=== PATIENT | female | born 1985 | race American Indian/Alaskan Native ===

== ENCOUNTER 2016-11-21 14:24 | Emergency (ER) | payer OTHER ==
[2016-11-21 14:51] VITALS: BP 121/72
[2016-11-21] MEDS ORDERED: MOTRIN PO ONE (16:49)
--- NOTE | 2016-11-21 16:50 | Emergency Department Report ---
Upper Extremity - HPI Chief Complaint: Extremity Injury, Upper Stated Complaint: LEFT THUMB JOINT PAIN Time Seen by Provider: 11/21/16 16:38 Upper Extremity: Left Thumb (left thumb pain) Occurred When: >5 Days Mechanism: Other (unknown) Symptoms: Yes Pain with Movement ( right thumb), No Deformity, No Limited Range of Movement, No Numbness, No Weakness, No Swelling, No Bruising/Ecchymosis, No Laceration or Abrasion Other History: Patient here reports that she is having lt thumb pain at the base. She reports that pain is burning and it comes and goes. Patient uses a [place] at work. Reports a burning pain at 6 out of 10. Denies any trauma. ED Review of Systems ROS: Stated complaint: LEFT THUMB JOINT PAIN Other details as noted in HPI Comment: All other systems reviewed and negative Constitutional: denies: chills, fever Respiratory: no symptoms reported Cardiovascular: denies: chest pain, palpitations, edema, syncope Musculoskeletal: arthralgia. denies: back pain, joint swelling Neurological: denies: headache, numbness, paresthesias, abnormal gait, vertigo ED Past Medical Hx - Past Medical History Previous Medical History?: Yes Hx Diabetes: (BORDERLINE) Additional medical history: SCOLEOSIS - Surgical History Past Surgical History?: Yes Additional Surgical History: BACK SURGERY X 2. HERNIA REPAIR - Family History Family history: hypertension - Social History Smoking Status: Never Smoker Substance Use Type: Alcohol - Medications Home Medications: Home Medications Medication Instructions Recorded Confirmed Last Taken Type Naproxen [Naprosyn TAB] 500 mg PO BID PRN #15 tablet 11/21/16 Unknown Rx Upper Extremity Exam - Exam General: Vital signs noted. No distress. Alert and acting appropriately. This is a 31-year-old female well-nourished well-developed in no acute distress. Head and Torso: No HEENT Abnormality, No Neck Tenderness, No Chest/Lungs Abnormality, No Abdominal Tenderness, No Back Tenderness Shoulder Exam: Yes Normal Range of Motion in Shoulder, No Shoulder Tenderness, No Clavicle Tenderness, No Shoulder Deformity, No AC Joint Tenderness Arm Exam: No Arm/Humerus Tenderness, No Arm Deformity Elbow: Yes Normal Range of Motion in Elbow, No Elbow Tenderness, No Elbow Deformity Forearm: No Forearm Tenderness, No Forearm Deformity, No Pain with Pronation, No Pain with Supination Wrist: Yes Normal ROM in Wrist, No Wrist Tenderness, No Wrist Deformity, No Snuffbox Tenderness, No Pain with Axial Thumb Compression Hand: Yes Normal ROM in Digit(s), No Hand Tenderness, No Hand Deformity, No Digit Tenderness, No Digit(s) Deformity, No Tendon Dysfunction CMS Exam: Yes Normal Distal Pulses, Yes Normal Capillary Refill, Yes Normal Distal Sensation, No Broken Skin ED Course Vital Signs 11/21/16 14:40 Temperature 98.3 F Pulse Rate 78 Respiratory 18 Rate Blood Pressure 121/72 O2 Sat by Pulse 100 Oximetry - Reevaluation(s) Reevaluation #1: 11/21/16 16:51 Patient Motrin 800 mg in emergency room to manage pain. - Orthopedic Splinting/Casting Injury #1 Side: left Upper Extremity Injury Location: hand (left thumb ) Upper Extremity Immobilizer: wrist splint ED Medical Decision Making - Medical Decision Making ED course: She given Motrin 800 mg in emergency room to manage some pain. Discussed with her that there is a strong possibility that she can have carpal tunnel syndrome and she'll need to follow-up with orthopedic doctor for further evaluation and treatment. See procedure note for details. Patient was understanding of diagnostic and treatment plan. Discharged home with prescription for naproxen. Critical care attestation.: If time is entered above; I have spent that time in minutes in the direct care of this critically ill patient, excluding procedure time. ED Disposition Clinical Impression: Pain of left thumb Disposition: DISCHARGED TO HOME OR SELFCARE Is pt being admited?: No Does the pt Need Aspirin: No Condition: Stable Instructions: Arthralgia (ED) Prescriptions: Naproxen [Naprosyn TAB] 500 mg PO BID PRN #15 tablet PRN Reason: Pain Referrals: PRIMARY CAREMD [Primary Care Provider] - 3-5 Days LAURA MEJIA MD [Staff Physician] - 2-3 Days Forms: Work/School Release Form(ED)
== END 2016-11-21 17:15 | disposition home or self-care (01) ==
LOC: ED 14:24
DX: M79.645 Pain in left finger(s) (principal)
CPT/HCPCS: 99282

== ENCOUNTER 2017-02-10 08:57 | Emergency (ER) | payer OTHER ==
[2017-02-10 09:58] LABS: Basophils % (Auto) 0.3 % (0.0-1.8); Eosinophils % (Auto) 0.4 % (0.0-4.3); Hematocrit 36.4 % (30.3-42.9); Mean Corpuscular HGB Conc 33 % (30-34); Mean Corpuscular Volume 78 fl (79-97); Platelet Count 372 K/mm3 (140-440); Red Blood Count 4.65 M/mm3 (3.65-5.03); Red Cell Distribution Width 15.5 % (13.2-15.2); White Blood Count 4.6 K/mm3 (4.5-11.0)
[2017-02-10 10:00] LABS: Alanine Aminotransferase 6 units/L (7-56); Albumin 3.9 g/dL (3.9-5); Albumin/Globulin Ratio 1.1 %; Alkaline Phosphatase 55 units/L (35-129); Anion Gap 18 mmol/L; Blood Urea Nitrogen 7 mg/dL (7-17); Carbon Dioxide 21 mmol/L (22-30); Chloride 101.8 mmol/L (98-107); Glucose 94 mg/dL (65-100); Lipase 12 units/L (13-60); Potassium 3.9 mmol/L (3.6-5.0); Sodium 137 mmol/L (137-145); Total Protein 7.4 g/dL (6.3-8.2)
[2017-02-10 10:18] LABS: Bilirubin,Urine NEG (Negative); Blood,Urine NEG (Negative); Ketones,Urine TR mg/dL (Negative); Leukocyte Esterase,Urine NEG (Negative); Mucus,Urine FEW /HPF; Nitrite,Urine NEG (Negative); Protein,Urine <15 mg/dL mg/dL (Negative); RBC,Urine < 1.0 /HPF (0.0-6.0); Urobilinogen,Urine < 2.0 mg/dL (<2.0)
[2017-02-10 10:29] LABS: Mean Corpuscular Hemoglobin 26 pg (28-32)
--- NOTE | 2017-02-10 14:58 | Emergency Department Report ---
ED General Adult HPI - General Chief complaint: Abdominal Pain Stated complaint: ABD PAIN /BACK PAIN Time Seen by Provider: 02/10/17 14:57 Source: patient, RN notes reviewed Mode of arrival: Ambulatory Limitations: No Limitations - History of Present Illness Initial comments: This is a 31-year-old female. She is previously unknown to me. She is 1, para 0. Last menstrual period is at the end of December. 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 The patient presents to the ER with resolved lower abdominal pain and lower back pain. She has nausea but no vomiting. She has no chest pain or shortness of breath. The patient did not know that she was . She currently has no abdominal pain or lower back pain. She has no irritative or obstructive urinary symptoms , and she denies hematemesis and bright red blood per rectum. Abdominal pain was cramping. Back pain was cramping. Did not radiate anywhere. No exacerbating or relieving factors. -: Gradual Location: back, abdomen Severity scale (0 -10): 5 Consistency: now resolved Improves with: none Worsens with: none Associated Symptoms: nausea/vomiting. denies: confusion, chest pain, cough, diaphoresis, headaches, loss of appetite, malaise, shortness of breath, syncope , weakness - Related Data Home Medications Medication Instructions Recorded Confirmed Last Taken Ibuprofen [Motrin] 200 mg PO Q6H PRN 02/10/17 02/10/17 Unknown Previous Rx's Medication Instructions Recorded Last Taken Type Doxylamine/Pyridoxine HCl 1 each PO QHS PRN #30 tablet. 02/10/17 Unknown Rx [Rachael Alcantar 10-10 mg Tablet] Vit W-Ca,Fe,FA(<1 mg) 1 each PO QDAY #30 tablet 02/10/17 Unknown Rx [ Vitamins] Allergies Allergy/AdvReac Type Severity Reaction Status Date / Time acetaminophen [From Tylox] AdvReac Rash Verified 11/21/16 14:46 oxycodone HCl [From Tylox] AdvReac Rash Verified 11/21/16 14:46 ED Review of Systems ROS: Stated complaint: ABD PAIN /BACK PAIN Other details as noted in HPI Constitutional: denies: fever ENT: denies: dental pain, epistaxis Respiratory: denies: cough Cardiovascular: denies: chest pain Gastrointestinal: nausea Genitourinary: denies: dysuria Musculoskeletal: denies: myalgia Skin: denies: lesions Neurological: denies: weakness Psychiatric: denies: anxiety ED Past Medical Hx - Past Medical History Hx Diabetes: (BORDERLINE) Additional medical history: SCOLEOSIS - Surgical History Additional Surgical History: BACK SURGERY X 2. HERNIA REPAIR - Social History Smoking Status: Never Smoker Substance Use Type: Alcohol - Medications Home Medications: Home Medications Medication Instructions Recorded Confirmed Last Taken Type Doxylamine/Pyridoxine HCl 1 each PO QHS PRN #30 tablet.dr 02/10/17 Unknown Rx [Diclegis Dr 10-10 mg Tablet] Ibuprofen [Motrin] 200 mg PO Q6H PRN 02/10/17 02/10/17 Unknown History Vit W-Ca,Fe,FA(<1 mg) 1 each PO QDAY #30 tablet 02/10/17 Unknown Rx [ Vitamins] ED Physical Exam - General Limitations: No Limitations General appearance: alert, in no apparent distress - Head Head exam: Present: atraumatic, normocephalic - Eye Eye exam: Present: normal appearance, EOMI. Absent: nystagmus - ENT ENT exam: Present: normal exam, normal orophraynx, mucous membranes moist, normal external ear exam - Neck Neck exam: Present: normal inspection, full ROM. Absent: tenderness, meningismus - Respiratory Respiratory exam: Present: normal lung sounds bilaterally. Absent: respiratory distress, wheezes, rales, rhonchi, stridor, chest wall tenderness, accessory muscle use, decreased breath sounds - Cardiovascular Cardiovascular Exam: Present: regular rate, normal rhythm, normal heart sounds. Absent: bradycardia, tachycardia, irregular rhythm, systolic murmur, diastolic murmur, rubs, gallop - GI/Abdominal GI/Abdominal exam: Present: soft, normal bowel sounds. Absent: distended, tenderness, guarding, rebound, rigid, pulsatile mass - Extremities Exam Extremities exam: Present: normal inspection, full ROM, normal capillary refill. Absent: tenderness, pedal edema, joint swelling, calf tenderness - Back Exam Back exam: Present: normal inspection, full ROM. Absent: tenderness, CVA tenderness (R), CVA tenderness (L), muscle spasm, paraspinal tenderness, vertebral tenderness - Neurological Exam Neurological exam: Present: alert, oriented X3, normal gait, other (Extraocular movements intact. Tongue midline. No facial droop. Facial sensation intact to light touch in the V1, V2, V3 distribution bilaterally. 5 and 5 strength in 4 extremities.. Sensation is intact to light touch in 4 extremities.). Absent : motor sensory deficit - Psychiatric Psychiatric exam: Present: normal affect, normal mood - Skin Skin exam: Present: warm, dry, intact, normal color. Absent: rash ED Course Vital Signs 02/10/17 02/10/17 02/10/17 09:17 14:18 14:20 Temperature 98.7 F Pulse Rate 94 H Respiratory 16 Rate Blood Pressure 124/80 126/86 Blood Pressure [Left] O2 Sat by Pulse 100 99 100 Oximetry 02/10/17 02/10/17 02/10/17 14:24 14:30 14:40 Temperature 98.4 F Pulse Rate 108 H Respiratory 16 Rate Blood Pressure 126/86 126/86 Blood Pressure 126/86 [Left] O2 Sat by Pulse 100 97 98 Oximetry 02/10/17 02/10/17 02/10/17 14:50 15:00 15:10 Temperature Pulse Rate Respiratory Rate Blood Pressure 126/86 126/86 126/86 Blood Pressure [Left] O2 Sat by Pulse 98 97 81 L Oximetry 02/10/17 02/10/17 02/10/17 15:15 15:20 17:10 Temperature 98.7 F Pulse Rate 77 Respiratory 16 16 Rate Blood Pressure 126/86 Blood Pressure 114/78 [Left] O2 Sat by Pulse 99 99 100 Oximetry - Reevaluation(s) Reevaluation #1: 02/10/17 16:00 Differential diagnosis: Nausea and vomiting of , urinary tract infection, incidental Assessment and plan: 31-year-old female with resolved abdominal pain, resolved back pain, nontender abdomen, with incidental . My bedside ultrasound does not demonstrate an intrauterine . Urinalysis not consistent with UTI. Quantitative hCG ordered. Formal transvaginal ultrasound ordered. Patient declines pain medication, nausea medication at this time. Reevaluation #2: 02/10/17 16:38 Ultrasound confirms intrauterine . Patient feels improved. She is playing in a cellular phone. She is tolerating liquid feeds. She will be discharged with nausea medication, vitamins, instructions to follow up with outpatient obstetrics. Type and screen appreciated, there is no bleeding, therefore RhoGAM is not indicated at this time. 02/10/17 20:59 ED Medical Decision Making - Lab Data Result diagrams: 02/10/17 09:26 02/10/17 09:26 Vital Signs 02/10/17 02/10/17 02/10/17 09:17 14:18 14:20 Temperature 98.7 F Pulse Rate 94 H Respiratory 16 Rate Blood Pressure 124/80 126/86 Blood Pressure [Left] O2 Sat by Pulse 100 99 100 Oximetry 02/10/17 14:24 Temperature 98.4 F Pulse Rate 108 H Respiratory 16 Rate Blood Pressure Blood Pressure 126/86 [Left] O2 Sat by Pulse 100 Oximetry Lab Results 02/10/17 02/10/17 02/10/17 Range/Units 09:26 09:26 09:38 WBC 4.6 (4.5-11.0) K/mm3 RBC 4.65 (3.65-5.03) M/mm3 Hgb 12.0 (10.1-14.3) gm/dl Hct 36.4 (30.3-42.9) % MCV 78 L (79-97) fl MCH 26 L (28-32) pg MCHC 33 (30-34) % RDW 15.5 H (13.2-15.2) % Plt Count 372 (140-440) K/mm3 Lymph % (Auto) 28.3 (13.4-35.0) % [place] % (Auto) 7.7 H (0.0-7.3) % Eos % (Auto) 0.4 (0.0-4.3) % Baso % (Auto) 0.3 (0.0-1.8) % Lymph # 1.3 (1.2-5.4) K/mm3 [place] # 0.4 (0.0-0.8) K/mm3 Eos # 0.0 (0.0-0.4) K/mm3 Baso # 0.0 (0.0-0.1) K/mm3 Seg Neutrophils % 63.3 (40.0-70.0) % Seg Neutrophils # 2.9 (1.8-7.7) K/mm3 Sodium 137 (137-145) mmol/L Potassium 3.9 (3.6-5.0) mmol/L Chloride 101.8 (98-107) mmol/L Carbon Dioxide 21 L (22-30) mmol/L Anion Gap 18 mmol/L BUN 7 (7-17) mg/dL Creatinine 0.4 L (0.7-1.2) mg/dL Estimated GFR > 60 ml/min BUN/Creatinine Ratio 17.50 % Glucose 94 (65-100) mg/dL Calcium 9.0 (8.4-10.2) mg/dL Total Bilirubin 1.00 (0.1-1.2) mg/dL AST 12 (5-40) units/L ALT 6 L (7-56) units/L Alkaline Phosphatase 55 (35-129) units/L Total Protein 7.4 (6.3-8.2) g/dL Albumin 3.9 (3.9-5) g/dL Albumin/Globulin Ratio 1.1 % Lipase 12 L (13-60) units/L Urine Color Yellow (Yellow) Urine Turbidity Clear (Clear) Urine pH 6.0 (5.0-7.0) Ur Specific [place] 1.012 (1.003-1.030) Urine Protein <15 mg/dl (Negative) mg/dL Urine Glucose (UA) Neg (Negative) mg/dL Urine Ketones Tr (Negative) mg/dL Urine Blood Neg (Negative) Urine Nitrite Neg (Negative) Ur Reducing Substances Not Reportable Urine Bilirubin Neg (Negative) Urine Ictotest Not Reportable Urine Urobilinogen < 2.0 (<2.0) mg/dL Ur Leukocyte Esterase Neg (Negative) Urine WBC (Auto) 1.0 (0.0-6.0) /HPF Urine RBC (Auto) < 1.0 (0.0-6.0) /HPF U Epithel Cells (Auto) 5.0 (0-13.0) /HPF Hyaline Casts 1 /LPF Urine Mucus Few /HPF Urine HCG, Qual Positive A (Negative) - Radiology Data Radiology results: report reviewed, image reviewed Transvaginal and obstetrics ultrasound demonstrated an intrauterine , early gestational sac, 5 weeks and 5 days. No heartbeat is noted. Ovaries not visualized. No bleeding is noted. Critical care attestation.: If time is entered above; I have spent that time in minutes in the direct care of this critically ill patient, excluding procedure time. ED Disposition Clinical Impression: Disposition: DISCHARGED TO HOME OR SELFCARE Is pt being admited?: No Does the pt Need Aspirin: No Condition: Stable Instructions: Morning Sickness (ED), (ED) Additional Instructions: Take the vitamins, nausea medication as directed. Follow-up with the listed OB/ [facility] physicians as soon as possible to initiate care. Avoid consumption of ibuprofen, Motrin, Aleve, aspirin. Avoid eating heavy and spicy foods. Return to the ER right away with new pain, worsened pain, migration of pain, fevers or chills, nausea or vomiting, any inability to tolerate liquid feeds. Prescriptions: Doxylamine/Pyridoxine HCl [Rachael Alcantar 10-10 mg Tablet] 1 each PO QHS PRN #30 tablet. PRN Reason: Nausea Vit W-Ca,Fe,FA(<1 mg) [ Vitamins] 1 each PO QDAY #30 tablet Referrals: PRIMARY CAREMD [Primary Care Provider] - 3-5 Days ARON POWELL MD [Staff Physician] - 3-5 Days [facility] [Provider Group] - 3-5 Days [facility] [Provider Group] - 3-5 Days [facility] [Provider Group] - 3-5 Days
--- NOTE | 2017-02-10 16:24 | Ultrasound Report ---
ULTRASOUND OB LESS THAN 14 WEEKS - TRANSABDOMINAL AND TRANSVAGINAL INDICATION: , abdominal pain. Positive urine test. COMPARISON: None similar. FINDINGS: Transabdominal and transvaginal pelvic sonography somewhat limited due to patient's body habitus in this patient with LMP unsure, possibly 12/28/2016 and estimated menstrual age of 6 weeks and 2 days. A 7.9 x 4.2 x 4.4 cm uterus demonstrates a single cystic focus along the endometrium without a pole evident at this time. Approximately 2 mm yolk sac. Mean gestational sac diameter of 0.92 cm corresponds to 5 weeks and 5 days. No significant pelvic free fluid. Ovaries not well visualized, though grossly estimated at 3.2 x 1.4 x 2 cm on the right, in so far seen. Left ovary not seen. CONCLUSION: 1. Sonographic findings suggest an intrauterine gestational sac/early estimated at 5 weeks and 5 days with EDC of 10/08/2017, though viability yet not confirmed at this time. 2. Left ovary not visualized. Please also correlate clinically, with serial serum beta-hCG values and/or followup sonogram, as warranted. Thank you for the opportunity to participate in this patient's care.
[2017-02-10 17:41] VITALS: BP 114/78
== END 2017-02-10 17:15 | disposition home or self-care (01) ==
LOC: ED 08:57
DX: O21.9 Vomiting of pregnancy, unspecified (principal); R11.0 Nausea; E11.9 Type 2 diabetes mellitus without complications; M41.9 Scoliosis, unspecified; Z88.8 Allergy status to other drugs, medicaments and biological substances; Z3A.01 Less than 8 weeks gestation of pregnancy
CPT/HCPCS: 36415; 76801; 76817; 80053; 81001; 81025; 83690; 84702; 85025; 86850; 86900; 86901

== ENCOUNTER 2017-03-22 14:55 | Emergency (ER) | payer OTHER, MEDICAID ==
--- NOTE | 2017-03-22 15:34 | Emergency Department Report ---
Chief Complaint: Chest Pain Stated Complaint: CHEST/BACK PAIN Time Seen by Provider: 03/22/17 15:29 - HPI History of Present Illness: PT c/o cough x 2 weeks, productive sputum pt is . PT states she threw up one time. - ROS Review of Systems: + [place] + back pain + cough, hurts back to cough and sneeze - Exam Vital Signs: Vital Signs 03/22/17 15:19 Temperature 98.6 F Pulse Rate 80 Respiratory 20 Rate Blood Pressure 123/78 O2 Sat by Pulse 100 Oximetry Physical Exam: No CVA tenderness. PT c/o L lower back pain, no tenderness on exam. MSE screening note: Focused history and physical exam performed. Due to findings the following was ordered: labs ED Disposition for MSE Condition: Stable
[2017-03-22 16:14] LABS: Basophils % (Auto) 0.2 % (0.0-1.8); Eosinophils % (Auto) 0.6 % (0.0-4.3); Hematocrit 36.2 % (30.3-42.9); Hemoglobin 11.8 gm/dl (10.1-14.3); Mean Corpuscular HGB Conc 33 % (30-34); Mean Corpuscular Hemoglobin 26 pg (28-32); Mean Corpuscular Volume 80 fl (79-97); Platelet Count 336 K/mm3 (140-440); Red Blood Count 4.53 M/mm3 (3.65-5.03); Red Cell Distribution Width 15.2 % (13.2-15.2); White Blood Count 5.9 K/mm3 (4.5-11.0)
[2017-03-22 16:40] LABS: Alanine Aminotransferase 12 units/L (7-56); Albumin 4.1 g/dL (3.9-5); Albumin/Globulin Ratio 1.1 %; Alkaline Phosphatase 51 units/L (35-129); Anion Gap 18 mmol/L; Blood Urea Nitrogen 11 mg/dL (7-17); Calcium 9.6 mg/dL (8.4-10.2); Carbon Dioxide 22 mmol/L (22-30); Glucose 85 mg/dL (65-100); Potassium 3.7 mmol/L (3.6-5.0); Sodium 133 mmol/L (137-145); Total Protein 7.7 g/dL (6.3-8.2)
--- NOTE | 2017-03-22 23:36 | Emergency Department Report ---
ED General Adult HPI - General Chief complaint: Chest Pain Stated complaint: CHEST/BACK PAIN Time Seen by Provider: 03/22/17 15:29 Source: patient, RN notes reviewed, old records reviewed Mode of arrival: Ambulatory Limitations: No Limitations - History of Present Illness Initial comments: This is a 31-year-old female. I have evaluated her in the past. She is 1, para 0. Last menstrual period at the end of December. Patient was incidentally found to be on February 10 by myself. The patient presents to the ER with multiple complaints. Her first complaint is cough. The cough has been present for 2 weeks. It is associated with right- sided chest wall pain. To me, patient indicates chest wall pain does not radiate to the back. There is no diaphoresis or shortness of breath. There is no leg pain. There is no leg swelling. There is no lower abdominal pain. No hematemesis or bright red blood per rectum, and the patient reports a limited exercise tolerance. The patient's next complaint is headache. The headache is global and throbbing. It has been present for 2-3 days. The headache did not reach maximal intensity within an hour. The headache is not similar thunderclap in nature. It is not the worse headache of her life. Patient reports a worse headache a few months ago. -: Gradual, week(s) Location: chest Severity scale (0 -10): 8 Quality: aching Consistency: intermittent Improves with: rest Worsens with: movement Associated Symptoms: chest pain, cough - Related Data Home Medications Medication Instructions Recorded Confirmed Last Taken Ibuprofen [Motrin] 200 mg PO Q6H PRN 02/10/17 02/10/17 Unknown Previous Rx's Medication Instructions Recorded Last Taken Type Doxylamine/Pyridoxine HCl 1 each PO QHS PRN #30 tablet. 02/10/17 Unknown Rx [Rachael Alcantar 10-10 mg Tablet] Vit W-Ca,Fe,FA(<1 mg) 1 each PO QDAY #30 tablet 02/10/17 Unknown Rx [ Vitamins] Doxylamine/Pyridoxine HCl 1 each PO QHS PRN #30 tablet. 03/23/17 Unknown Rx [Rachael Alcantar 10-10 mg Tablet] Vit W-Ca,Fe,FA(<1 mg) 1 each PO QDAY #30 tablet 03/23/17 Unknown Rx [ Vitamins] Allergies Allergy/AdvReac Type Severity Reaction Status Date / Time acetaminophen [From Tylox] AdvReac Rash Verified 11/21/16 14:46 oxycodone HCl [From Tylox] AdvReac Rash Verified 11/21/16 14:46 ED Review of Systems ROS: Stated complaint: CHEST/BACK PAIN Other details as noted in HPI Constitutional: denies: malaise Eyes: denies: vision change Respiratory: cough. denies: shortness of breath Cardiovascular: chest pain Gastrointestinal: denies: abdominal pain, nausea, vomiting Genitourinary: denies: urgency, dysuria Skin: denies: rash, lesions Neurological: headache ED Past Medical Hx - Past Medical History Previous Medical History?: Yes Hx Diabetes: (BORDERLINE) Additional medical history: SCOLEOSIS - Surgical History Past Surgical History?: Yes Additional Surgical History: BACK SURGERY X 2. HERNIA REPAIR - Social History Smoking Status: Never Smoker - Medications Home Medications: Home Medications Medication Instructions Recorded Confirmed Last Taken Type Doxylamine/Pyridoxine HCl 1 each PO QHS PRN #30 tablet. 02/10/17 Unknown Rx [Rachael Alcantar 10-10 mg Tablet] Ibuprofen [Motrin] 200 mg PO Q6H PRN 02/10/17 02/10/17 Unknown History Vit W-Ca,Fe,FA(<1 mg) 1 each PO QDAY #30 tablet 02/10/17 Unknown Rx [ Vitamins] Doxylamine/Pyridoxine HCl 1 each PO QHS PRN #30 tablet. 03/23/17 Unknown Rx [Rachael Alcantar 10-10 mg Tablet] Vit W-Ca,Fe,FA(<1 mg) 1 each PO QDAY #30 tablet 03/23/17 Unknown Rx [ Vitamins] ED Physical Exam - General Limitations: No Limitations General appearance: alert, in no apparent distress - Head Head exam: Present: atraumatic, normocephalic - Eye Eye exam: Present: normal appearance, PERRL, EOMI. Absent: nystagmus - ENT ENT exam: Present: normal exam, normal orophraynx, mucous membranes moist, normal external ear exam - Neck Neck exam: Present: normal inspection, full ROM. Absent: tenderness, meningismus - Respiratory Respiratory exam: Present: normal lung sounds bilaterally, chest wall tenderness. Absent: respiratory distress, wheezes, rales, rhonchi, stridor - Cardiovascular Cardiovascular Exam: Present: regular rate, normal rhythm, normal heart sounds. Absent: bradycardia, tachycardia, irregular rhythm, systolic murmur, diastolic murmur, rubs, gallop - GI/Abdominal GI/Abdominal exam: Present: soft, normal bowel sounds. Absent: distended, tenderness, guarding, rebound, rigid, pulsatile mass - Extremities Exam Extremities exam: Present: normal inspection, full ROM, normal capillary refill. Absent: tenderness, pedal edema, joint swelling, calf tenderness - Back Exam Back exam: Present: normal inspection, full ROM. Absent: tenderness, CVA tenderness (R), CVA tenderness (L), muscle spasm, paraspinal tenderness, vertebral tenderness - Neurological Exam Neurological exam: Present: alert, oriented X3, normal gait, other (Extraocular movements intact. Tongue midline. No facial droop. Facial sensation intact to light touch in the V1, V2, V3 distribution bilaterally. 5 and 5 strength in 4 extremities.. Sensation is intact to light touch in 4 extremities.). Absent : motor sensory deficit - Psychiatric Psychiatric exam: Present: normal affect, normal mood - Skin Skin exam: Present: warm, dry, intact, normal color. Absent: rash ED Course Vital Signs 03/22/17 03/22/17 03/23/17 15:19 23:05 00:41 Temperature 98.6 F 98.4 F Pulse Rate 80 77 Respiratory 20 18 17 Rate Blood Pressure 123/78 Blood Pressure 119/78 [Left] O2 Sat by Pulse 100 100 Oximetry - Reevaluation(s) Reevaluation #1: 03/23/17 00:44 differential diagnosis: Costochondritis, bronchitis, migraine headache, tension headache, cluster headache, incidental Assessment and plan: 31-year-old female with 2 complaints. In terms of the patient's headache, she has chronic headaches, has a GCS of 15, with an NIH score of 0, and walks with a steady gait. During multiple re- evaluations, the patient seemed to be laughing, smiling and kidding around with her mother. I don't believe she requires advanced imaging at this time, the patient felt improved after acetaminophen and Reglan. Contrary to what is documented in the patient's allergies, the patient reports she is taking children's Tylenol at home. Discharge the patient's chest pain, it has been associated with a cough. The patient is low risk by ALEX score, low risk by heart score, and I find her to be low risk by well's criteria, especially given the patient has reproducible chest wall pain, the context of a cough. The patient declines a chest x-ray out of concern for radiation, and I think that this is reasonable. I have very low suspicion for thromboembolic disease, and therefore not send a d-dimer, as will most likely result in a false positive reading, and I do not think it is in the patient's best interest to exposure to ionizing radiation. The patient feels improved, she will be discharged with vitamins, and prn nausea medication, and she will be instructed to follow-up with her outpatient [facility] [facility] doctor. ED Medical Decision Making - Lab Data Result diagrams: 03/22/17 15:44 03/22/17 15:44 Vital Signs 03/22/17 03/22/17 03/23/17 15:19 23:05 00:41 Temperature 98.6 F 98.4 F 98.6 F Pulse Rate 80 77 79 Respiratory 20 18 17 Rate Blood Pressure 123/78 Blood Pressure 119/78 120/74 [Left] O2 Sat by Pulse 100 100 100 Oximetry Lab Results 03/22/17 03/22/17 03/22/17 Range/Units 15:44 15:44 15:44 WBC 5.9 (4.5-11.0) K/mm3 RBC 4.53 (3.65-5.03) M/mm3 Hgb 11.8 (10.1-14.3) gm/dl Hct 36.2 (30.3-42.9) % MCV 80 (79-97) fl MCH 26 L (28-32) pg MCHC 33 (30-34) % RDW 15.2 (13.2-15.2) % Plt Count 336 (140-440) K/mm3 Lymph % (Auto) 24.1 (13.4-35.0) % [place] % (Auto) 8.1 H (0.0-7.3) % Eos % (Auto) 0.6 (0.0-4.3) % Baso % (Auto) 0.2 (0.0-1.8) % Lymph # 1.4 (1.2-5.4) K/mm3 [place] # 0.5 (0.0-0.8) K/mm3 Eos # 0.0 (0.0-0.4) K/mm3 Baso # 0.0 (0.0-0.1) K/mm3 Seg Neutrophils % 67.0 (40.0-70.0) % Seg Neutrophils # 3.9 (1.8-7.7) K/mm3 Sodium 133 L (137-145) mmol/L Potassium 3.7 (3.6-5.0) mmol/L Chloride 97.0 L (98-107) mmol/L Carbon Dioxide 22 (22-30) mmol/L Anion Gap 18 mmol/L BUN 11 (7-17) mg/dL Creatinine 0.5 L (0.7-1.2) mg/dL Estimated GFR > 60 ml/min BUN/Creatinine Ratio 22.00 % Glucose 85 (65-100) mg/dL Calcium 9.6 (8.4-10.2) mg/dL Total Bilirubin 0.70 (0.1-1.2) mg/dL AST 15 (5-40) units/L ALT 12 (7-56) units/L Alkaline Phosphatase 51 (35-129) units/L Troponin T (0.00-0.029) ng/mL Total Protein 7.7 (6.3-8.2) g/dL Albumin 4.1 (3.9-5) g/dL Albumin/Globulin Ratio 1.1 % HCG, Quant [id number] H (0-4) mIU/mL 03/22/17 Range/Units 23:49 WBC (4.5-11.0) K/mm3 RBC (3.65-5.03) M/mm3 Hgb (10.1-14.3) gm/dl Hct (30.3-42.9) % MCV (79-97) fl MCH (28-32) pg MCHC (30-34) % RDW (13.2-15.2) % Plt Count (140-440) K/mm3 Lymph % (Auto) (13.4-35.0) % [place] % (Auto) (0.0-7.3) % Eos % (Auto) (0.0-4.3) % Baso % (Auto) (0.0-1.8) % Lymph # (1.2-5.4) K/mm3 [place] # (0.0-0.8) K/mm3 Eos # (0.0-0.4) K/mm3 Baso # (0.0-0.1) K/mm3 Seg Neutrophils % (40.0-70.0) % Seg Neutrophils # (1.8-7.7) K/mm3 Sodium (137-145) mmol/L Potassium (3.6-5.0) mmol/L Chloride (98-107) mmol/L Carbon Dioxide (22-30) mmol/L Anion Gap mmol/L BUN (7-17) mg/dL Creatinine (0.7-1.2) mg/dL Estimated GFR ml/min BUN/Creatinine Ratio % Glucose (65-100) mg/dL Calcium (8.4-10.2) mg/dL Total Bilirubin (0.1-1.2) mg/dL AST (5-40) units/L ALT (7-56) units/L Alkaline Phosphatase (35-129) units/L Troponin T < 0.010 (0.00-0.029) ng/mL Total Protein (6.3-8.2) g/dL Albumin (3.9-5) g/dL Albumin/Globulin Ratio % HCG, Quant (0-4) mIU/mL - EKG Data -: EKG Interpreted by [place] EKG shows normal: sinus rhythm, axis, intervals, QRS complexes, ST-T waves - EKG Data 03/23/17 00:46 EKG #1 demonstrates normal sinus, 79 beats per minute, normal intervals, normal axis, not morphologically consistent with STEMI. EKG #2 demonstrates normal sinus, 77 per minute, normal axis, not morphologically consistent with STEMI. - Radiology Data Bedside ultrasound confirms presence of intrauterine , with heartbeat and motion noted. As per the [employer] clinical policy, myocardial infarction may be excluded with 1 set of cardiac enzymes if symptoms haven't present for greater than 8 hours. Patient's pain has been present for days. Critical care attestation.: If time is entered above; I have spent that time in minutes in the direct care of this critically ill patient, excluding procedure time. ED Disposition Clinical Impression: Chest wall pain, Headache, Disposition: DC-01 TO HOME OR SELFCARE Is pt being admited?: No Does the pt Need Aspirin: No Condition: Stable Instructions: Costochondritis (ED) Additional Instructions: Take medications as directed. Take acetaminophen 650 mg every 4-6 hours as needed for pain. Follow up with an [facility] [employer] [facility] doctor to start care as soon as possible. Not initiating care in a timely fashion may result in disability, loss of the , defects. . Return to the ER right away with new pain, worsening pain, migration of pain , fevers, chills, severe chest pain, shortness of breath, intractable nausea or vomiting, confusion, inability to tolerate liquid feeds. Referrals: PRIMARY CARE, [Primary Care Provider] - 3-5 Days [facility] [Provider Group] - 3-5 Days [facility] [Provider Group] - 3-5 Days [facility] [Provider Group] - 3-5 Days
[2017-03-22] MEDS ORDERED: TYLENOL PO ONE (23:52)
[2017-03-22] MEDS ORDERED: REGLAN PO ONE (23:52)
[2017-03-23 00:42] VITALS: BP 120/74
== END 2017-03-23 01:15 | disposition home or self-care (01) ==
LOC: ED 14:55
DX: O26.899 Other specified pregnancy related conditions, unspecified trimester (principal); R07.89 Other chest pain; R51 Headache; Z3A.00 Weeks of gestation of pregnancy not specified
CPT/HCPCS: 36415; 80053; 84484; 84702; 85025; 93005; 93010; 99283

== ENCOUNTER 2017-04-25 12:18 | Emergency (ER) | payer OTHER, MEDICAID ==
--- NOTE | 2017-04-25 12:32 | Emergency Department Report ---
Chief Complaint: Nausea/Vomiting/Diarrhea Stated Complaint: 16 WKS ,CANNOT CONSUME Time Seen by Provider: 04/25/17 12:29 - HPI History of Present Illness: PT c/o vomiting during . PT states is 16 weeks . PT states she is throwing up yellow liquid. PT c/o abd pain - ROS Review of Systems: + n/v + abd pain - vaginal bleeding - Exam Physical Exam: pt looks well, non toxic. steady gait no focal weakness pt c/o suprapubic pain MSE screening note: Focused history and physical exam performed. Due to findings the following was ordered: labs, us ED Disposition for MSE Condition: Stable
[2017-04-25 12:51] LABS: Bilirubin,Urine NEG (Negative); Blood,Urine NEG (Negative); Ketones,Urine 20 mg/dL (Negative); Leukocyte Esterase,Urine NEG (Negative); Nitrite,Urine NEG (Negative); Protein,Urine <15 mg/dL mg/dL (Negative); RBC,Urine < 1.0 /HPF (0.0-6.0); Urobilinogen,Urine < 2.0 mg/dL (<2.0); WBC,Urine < 1.0 /HPF (0.0-6.0)
[2017-04-25 13:25] LABS: Basophils % (Auto) 0.1 % (0.0-1.8); Eosinophils % (Auto) 0.1 % (0.0-4.3); Hematocrit 33.9 % (30.3-42.9); Hemoglobin 11.6 gm/dl (10.1-14.3); Mean Corpuscular HGB Conc 34 % (30-34); Mean Corpuscular Hemoglobin 27 pg (28-32); Mean Corpuscular Volume 80 fl (79-97); Platelet Count 329 K/mm3 (140-440); Red Blood Count 4.25 M/mm3 (3.65-5.03); White Blood Count 7.3 K/mm3 (4.5-11.0)
[2017-04-25 13:30] LABS: Alanine Aminotransferase 97 units/L (7-56); Albumin 3.9 g/dL (3.9-5); Albumin/Globulin Ratio 1.1 %; Alkaline Phosphatase 57 units/L (35-129); Blood Urea Nitrogen 6 mg/dL (7-17); Calcium 9.2 mg/dL (8.4-10.2); Carbon Dioxide 21 mmol/L (22-30); Glucose 88 mg/dL (65-100); Lipase 18 units/L (13-60); Total Protein 7.3 g/dL (6.3-8.2)
[2017-04-25 13:31] LABS: Anion Gap 19 mmol/L; Chloride 97.8 mmol/L (98-107); Potassium 3.9 mmol/L (3.6-5.0); Sodium 134 mmol/L (137-145)
[2017-04-25 16:10] VITALS: BP 117/73
--- NOTE | 2017-04-25 16:10 | Ultrasound Report ---
OB ULTRASOUND GREATER THAN 14 WEEKS INDICATION: Pelvic pain, vomiting. COMPARISON: 02/10/2017 TECHNIQUE: Transabdominal grayscale ultrasound with Doppler interrogation. Gestation: Fernando Position: Breech Amniotic Fluid: WNL (< 24 weeks, Subjective) Placenta: Anterior, fundal. Placental tip may be slightly low lying. Placental Grade: 0 Heart Rate: 142 BPM Cervical length: 4.9 cm (Normal > 3 cm) BPD: 3.4 cm = 16 w 4 d HC: 12.9 cm = 16 w 4 d AC: 10.4 cm = 16 w 3 d FL: 1.9 cm = 15 w 5 d HC/AC Ratio: 1.2 Cephalic Index: 81.4 Estimated Weight: 146 grams Clinical age = 16 w 5 d EDC: 10/05/2017 US Gest. Age = 16 w 2 d EDC: 10/08/2017 CONCLUSION: Single, viable intrauterine gestation with ultrasound estimated age of 16 weeks and 2 days and EDC of 10/08/2017, currently in breech lie with details, as above. Thank you for the opportunity to participate in this patient's care.
--- NOTE | 2017-04-26 15:05 | ED Elopement Review ---
ED Pt Elopement review - Results review Lab results: Laboratory Tests 04/25/17 04/25/17 04/25/17 12:53 12:53 12:53 WBC 7.3 RBC 4.25 Hgb 11.6 Hct 33.9 MCV 80 MCH 27 L MCHC 34 RDW 15.0 Plt Count 329 Lymph % (Auto) 13.9 [place] % (Auto) 5.7 Eos % (Auto) 0.1 Baso % (Auto) 0.1 Lymph # 1.0 L [place] # 0.4 Eos # 0.0 Baso # 0.0 Seg Neutrophils % 80.2 H Seg Neutrophils # 5.9 Sodium 134 L Potassium 3.9 Chloride 97.8 L Carbon Dioxide 21 L Anion Gap 19 BUN 6 L Creatinine 0.4 L Estimated GFR > 60 BUN/Creatinine Ratio 15.00 Glucose 88 Calcium 9.2 Total Bilirubin 0.60 AST 63 H ALT 97 H Alkaline Phosphatase 57 Total Protein 7.3 Albumin 3.9 Albumin/Globulin Ratio 1.1 Lipase 18 HCG, Quant 71355 H Urine Color Urine Turbidity Urine pH Ur Specific [place] Urine Protein Urine Glucose (UA) Urine Ketones Urine Blood Urine Nitrite Urine Bilirubin Urine Urobilinogen Ur Leukocyte Esterase Urine WBC (Auto) Urine RBC (Auto) 04/25/17 Unknown WBC RBC Hgb Hct MCV MCH MCHC RDW Plt Count Lymph % (Auto) [place] % (Auto) Eos % (Auto) Baso % (Auto) Lymph # [place] # Eos # Baso # Seg Neutrophils % Seg Neutrophils # Sodium Potassium Chloride Carbon Dioxide Anion Gap BUN Creatinine Estimated GFR BUN/Creatinine Ratio Glucose Calcium Total Bilirubin AST ALT Alkaline Phosphatase Total Protein Albumin Albumin/Globulin Ratio Lipase HCG, Quant Urine Color Yellow Urine Turbidity Slightly-cloudy Urine pH 5.0 Ur Specific [place] 1.019 Urine Protein <15 mg/dl Urine Glucose (UA) Neg Urine Ketones 20 Urine Blood Neg Urine Nitrite Neg Urine Bilirubin Neg Urine Urobilinogen < 2.0 Ur Leukocyte Esterase Neg Urine WBC (Auto) < 1.0 Urine RBC (Auto) < 1.0 - Call Back decision Pt Call Back Decision: Pt to F/U with PMD
== END 2017-04-25 21:53 | disposition left against medical advice (07) ==
LOC: ED 12:18
DX: O21.0 Mild hyperemesis gravidarum (principal); R10.9 Unspecified abdominal pain; Z3A.16 16 weeks gestation of pregnancy
CPT/HCPCS: 36415; 76805; 80053; 81001; 83690; 84702; 85025